=== PATIENT | female | born 1945 | race Two or more races ===

== ENCOUNTER → 2024-11-17 | Outpatient (CLI) | payer MEDICARE, MEDICAID, SELFPAY ==
--- NOTE | 2024-11-17 13:42 | XR_ITS ---
Examination: Hand, right 3 views Technique: Hand AP, oblique, lateral 3 views Date and time of exam: November 17, 2024 1400 hours INDICATIONS: Hand pain months. FINDINGS: Significant osteopenia Moderate osteoarthritis interphalangeal joints as well as first carpometacarpal joint No erosive arthritis No fractures IMPRESSION: Osteoarthritis as above
== END | disposition home or self-care (01) ==
PROVIDERS: PCP Nurse Practitioner Primary Care; Referring Provider Nurse Practitioner Primary Care; Visit Provider Nurse Practitioner Primary Care
DX: M18.11 Unilateral primary osteoarthritis of first carpometacarpal joint, right hand (principal)
CPT/HCPCS: 73130